=== PATIENT | female | born 2005 | race African-American/Black ===

== ENCOUNTER 2024-12-21 13:33 | Emergency (ER) | payer BC, SELFPAY ==
[2024-12-21 13:39] VITALS: BP 120/95; PULSE 88; RESP 20; TEMP 37.1; O2SAT 100
--- NOTE | 2024-12-21 13:49 | ED.DENTAL ---
HPI - Dental/Oral General Chief complaint: Dental/Oral Stated complaint: tooth pain/poss food poisoning Time Seen by Provider: 12/21/24 13:51 Source: patient Mode of arrival: ambulatory History of Present Illness HPI Narrative: 19 y/o female presented for c/o n/v/d which she attributes to food poisoning. onset last night after [place]. Pt says symptoms are better today. Denies associated abdominal pain, fever or hematochezia. Additionally, pt reports right lower tooth pain and nerve sensitivity for over one week. Endorses about 3 years ago the tooth broke from a jolly rancher. says about 5 days ago the site swelled and she reports pus draining from a white spot in the gum. Says she still has pain with chewing. Taking Tylenol and rinsing with salt water. Pt is unsure of gestation, scheduled with new Obgyn appointment 01/07. denies abdominal pain or vaginal bleeding. MD Complaint: tooth pain Related Data Allergies Allergy/AdvReac Type Severity Reaction Status Date / Time No Known Allergies Allergy Verified 12/21/24 13:53 Review of Systems Review of Systems: CONSTITUTIONAL: Denies body aches, fever, chills ENT: Denies rhinorrhea, congestion, sore throat, or otalgia. Reports dental pain CARDIOVASCULAR: Denies chest pain, palpitations RESPIRATORY: Denies cough or dyspnea. ABD: reports n/v/d SKIN: Denies rash, itching, or wounds. NEUROLOGIC: Denies headache, numbness, tingling, or weakness. PMFSH Comments At time of signature, I have reviewed and agree with nursing past medical, surgical, social and family history unless otherwise noted. Please see nursing chart for further information. There is no relevant family history pertinent to the presenting complaint Exam Narrative: GENERAL: Appears in pain; no acute distress. HEAD: Normocephalic, atraumatic. EYES: EOMI. No redness or drainage. Conjunctivae normal. ENT: Dental pain location of #30, broken tooth noted, tender gum. No significant gum swelling or drainage. Mucous membranes pink and moist. TMs normal bilaterally. Throat normal. no dysphagia, odynophagia, dysphonia, or dyspnea. No uvular deviation or soft palate edema. NECK: Normal AROM. No lymphadenopathy. no induration below mandible, no neck pain. CHEST: No respiratory distress. Clear to auscultation. HEART: Regular rate and rhythm. SKIN: Warm, dry, no rash. Normal skin turgor. NEURO: No focal deficits. Alert and oriented x3. Gait steady. Course Course Emergency Course: Patient is aware of diagnosis, understands and agrees to treatment plan. Anticipatory guidance given. Patient agrees to follow-up as directed and is aware of reasons to seek care at the emergency department. Portions of this record may have been created with voice recognition software Level of Care: Express Care Visit MDM - Dental/Oral MDM Narrative Medical decision making narrative: Pt reporting improvement in n/v/d symptoms today. will send few tabs of ondansetron. Patients pain and complaint and physical findings are consistent with dental abscess. There are no focal signs of space occupying lesions that are compromising to the airway;Patient is non-toxic appearing. The floor of the mouth is soft with no signs of Bryn's Angina; Patient is without trismus or drooling and able to swallow secretions. Patient is felt appropriate for discharge home with dental follow up. Differential Diagnosis Differential diagnosis: Likely gingival abscess, dental caries, toothache, dental abscess, fracture of tooth and aphthous ulcer Discharge Plan Discharge Clinical Impression: Toothache, Nausea vomiting and diarrhea Patient Disposition: Home Condition: Stable Instructions: Antibiotic Form, Dental Abscess (ED), Food Poisoning (ED), at 11 to 14 Weeks (ED) Additional Instructions: Dental: Take antibiotic as directed May apply heat or ice to the face Gentle brushing and flossing. Rinse mouth with warm salt water at least 2 times a day. Alternate Tylenol as needed for pain Follow-up with the dentist as soon as possible--see the list provided GI: Stay hydrated. Take small sips of fluid containing electrolytes frequently. Clear liquids (broth, jello, tea, sprite, pedialyte) Elaine foods (bananas, rice, applesauce, toast, crackers) Avoid fatty, greasy, fried or spicy foods. Limit dairy until symptoms are improved. Ondansetron as needed for nausea/vomiting You should go to the hospital if you experience persistent nausea and vomiting that does not resolve and does not allow you to tolerate any food or fluids, fevers, increasing abdominal pain, persistent diarrhea, dizziness, fainting, or for any other concerns. Follow up with primary care provider in 3 days. Follow up with obgyn as scheduled Patient Language: Kittitian Prescriptions: New ondansetron 4 mg tablet,disintegrating 4 mg PO Q8H PRN (Reason: nausea and vomiting) Qty: 10 0RF amoxicillin-pot clavulanate 875-125 mg tablet 1 tablet PO Q12H 7 Days Qty: 14 0RF Follow-up/Referrals: PHYSICIAN,[facility] [Primary Care Provider, Internal Medicine] Stand Alone Forms: Work/School Release IP Time of Disposition: 14:02
== END 2024-12-21 14:08 | disposition home or self-care (01) ==
PROVIDERS: Emergency Provider Nurse Practitioner Family
DX: O99.619 Diseases of the digestive system complicating pregnancy, unspecified trimester (principal); K08.89 Other specified disorders of teeth and supporting structures; O21.9 Vomiting of pregnancy, unspecified; R19.7 Diarrhea, unspecified; Z3A.00 Weeks of gestation of pregnancy not specified
CPT/HCPCS: 99203; G0463